=== PATIENT | male | born 1965 | race Two or more races ===

== ENCOUNTER 2019-05-03 08:50 | Day surgery (SDC) | payer OTHER | END 2019-05-03 15:30 | disposition home or self-care (01) | LOC: JASU-SURG 08:50 ==

== ENCOUNTER 2021-07-06 05:02 | Day surgery (SDC) | payer OTHER ==
[2021-07-04 14:53] VITALS: BMI 24.4
[2021-07-06] MEDS ORDERED: MIDAZOLAM HCL 2 MG/2 ML SINGLE DOSE VIAL ONE ×2 (12:21→12:38)
[2021-07-06] MEDS ORDERED: PROPOFOL 20 ML ONE (12:35)
[2021-07-06] MEDS ORDERED: ceFAZolin 2 GRAM PREMIX BAG IVPB ONE (12:37)
[2021-07-06] MEDS ORDERED: ONDANSETRON 4 MG/2 ML VIAL IVPUSH PRN (14:03)
[2021-07-06] MEDS ORDERED: oxyCODONE HCL 5 MG TABLET PO PRN (14:03)
[2021-07-06] MEDS ORDERED: LACTATED RINGERS SOLUTION 1,000 ML IV SCH (14:15)
[2021-07-06] MEDS ORDERED: oxyCODONE HCL 5 MG TABLET ONE (15:26)
[2021-07-06 16:19] VITALS: BP 133/80; PULSE 75; TEMP 98
== END 2021-07-06 16:22 | disposition home or self-care (01) ==
LOC: JASU-SURG 05:02
PROVIDERS: ATTEND Urology
PROC: 0T5B8ZZ Destruction of Bladder, Via Natural or Artificial Opening Endoscopic (ICD-10-PCS; principal; 2021-07-06 11:00)
DX: N40.1 Benign prostatic hyperplasia with lower urinary tract symptoms (principal); R31.29 Other microscopic hematuria; R35.0 Frequency of micturition; R39.15 Urgency of urination; R39.11 Hesitancy of micturition
CPT/HCPCS: 87086; 88305-TC; 94760

== ENCOUNTER 2023-04-03 20:03 | Emergency (ER) | payer OTHER ==
[2023-04-03 20:11] VITALS: BMI 28.7
[2023-04-03] MEDS ORDERED: HALOPERIDOL LACTATE 5 MG/ML IM ONE ×2 (21:24→21:28)
[2023-04-03 22:04] LABS: BASO % 0.7 % (0-2.0); EOS % 1.2 % (0-4.5); HEMATOCRIT 36.3 % (35.4-49); HEMOGLOBIN 12.1 GM/dL (11.7-16.9); LYMPH % 33.1 % (8-40); MCH 26.8 pg (25.7-33.7); MCHC 33.4 g/dl (32.0-35.9); MEAN CELL VOLUME 80.3 fl (80-96); MEAN PLT VOLUME 8.7 fl (7.5-11.1); MONO % 11.1 % (3.8-10.2); NEUT % 53.9 % (42.8-82.8); PLATELET COUNT 190 10^3/uL (134-434); RBC 4.52 M/mm3 (4.00-5.60); RDW 18.3 % (11.9-15.9); WHITE BLOOD COUNT 7.6 K/mm3 (4.0-10.0)
[2023-04-03 22:24] LABS: ALBUMIN 2.9 g/dl (3.4-5.0); BLOOD UREA NITROGEN 20.5 mg/dL (7-18); CALCIUM 8.4 mg/dL (8.5-10.1)
[2023-04-03 22:27] LABS: CREATININE 0.6 mg/dL (0.55-1.3)
[2023-04-03 22:29] LABS: BILIRUBIN,TOTAL 0.2 mg/dL (0.2-1); TOT PROT 6.5 g/dl (6.4-8.2)
[2023-04-04 08:24] VITALS: BP 127/76; PULSE 76; RESP 18; TEMP 97.6
== END 2023-04-04 14:23 ==
LOC: JER 20:03
PROC: 3E023GC Introduction of Other Therapeutic Substance into Muscle, Percutaneous Approach (ICD-10-PCS; principal; 2023-04-03)
DX: R45.89 Other symptoms and signs involving emotional state (principal)
CPT/HCPCS: 36415; 80053; 85025; 93005; 93010; 99284-25

== ENCOUNTER 2023-09-04 22:00 | Inpatient (IN) | payer OTHER ==
[2023-09-05] MEDS ORDERED: MELATONIN 5 MG TABLETS PO ONE (00:22)
[2023-09-05] MEDS ORDERED: MELATONIN 5 MG TABLETS ONE (00:50)
[2023-09-05 01:05] LABS: BASO % 0.9 % (0-2.0); EOS % 1.4 % (0-4.5); HEMATOCRIT 40.3 % (35.4-49); HEMOGLOBIN 13.1 GM/dL (11.7-16.9); LYMPH % 36.1 % (8-40); MCHC 32.4 g/dl (32.0-35.9); MEAN CELL VOLUME 86.4 fl (80-96); MEAN PLT VOLUME 8.9 fl (7.5-11.1); MONO % 9.2 % (3.8-10.2); NEUT % 52.4 % (42.8-82.8); PLATELET COUNT 180 10^3/uL (134-434); RBC 4.66 M/mm3 (4.00-5.60); RDW 16.6 % (11.9-15.9); WHITE BLOOD COUNT 7.3 K/mm3 (4.0-10.0)
[2023-09-05 01:27] LABS: POTASSIUM 4.6 mmol/L (3.5-5.1)
[2023-09-05 01:29] LABS: CALCIUM 8.2 mg/dL (8.5-10.1)
[2023-09-05 01:30] LABS: BLOOD UREA NITROGEN 22.6 mg/dL (7-18)
[2023-09-05 01:33] LABS: CREATININE 0.6 mg/dL (0.55-1.3)
[2023-09-05 01:34] LABS: BILIRUBIN,TOTAL 0.3 mg/dL (0.2-1); TOT PROT 6.4 g/dl (6.4-8.2)
[2023-09-05] MEDS: TAMSULOSIN HCL 0.4 MG CAP PO SCH (08:35)
[2023-09-05] MEDS: FLUoxetine HCL 20 MG CAPSULE PO SCH (10:04)
[2023-09-05] MEDS: DIVALPROEX NA *ER* EXTEND REL 500 MG TABLET.SA (FP) PO SCH (10:04)
[2023-09-05] MEDS: MUPIROCIN 2% TOPICAL OINTMENT 22 GM TUBE TP SCH ×2 (12:23→23:12)
[2023-09-05 13:06] LABS: COCAINE, UR NEGATIVE (NEGATIVE); METHADONE, UR NEGATIVE (NEGATIVE)
[2023-09-05 13:07] LABS: OPIATES, URI NEGATIVE (NEGATIVE); PHENCYCLIDINE,URINE NEGATIVE (NEGATIVE); URINE AMPHETAMINES NEGATIVE (NEGATIVE); URINE BARBITURATES NEGATIVE (NEGATIVE); URINE BENZODIAZEPINES NEGATIVE (NEGATIVE)
[2023-09-05 13:29] LABS: BASO % 0.5 % (0-2.0); EOS % 1.3 % (0-4.5); HEMATOCRIT 41.4 % (35.4-49); HEMOGLOBIN 13.5 GM/dL (11.7-16.9); LYMPH % 27.6 % (8-40); MCHC 32.5 g/dl (32.0-35.9); MEAN CELL VOLUME 86.1 fl (80-96); MONO % 8.4 % (3.8-10.2); NEUT % 62.2 % (42.8-82.8); PLATELET COUNT 193 10^3/uL (134-434); RBC 4.81 M/mm3 (4.00-5.60); RDW 16.8 % (11.9-15.9); WHITE BLOOD COUNT 6.5 K/mm3 (4.0-10.0)
[2023-09-05 13:53] LABS: CALCIUM 8.4 mg/dL (8.5-10.1)
[2023-09-05 13:54] LABS: ALBUMIN 3.2 g/dl (3.4-5.0); BLOOD UREA NITROGEN 19.1 mg/dL (7-18)
[2023-09-05 13:56] LABS: CREATININE 0.5 mg/dL (0.55-1.3)
[2023-09-05 13:57] LABS: PHOSPHOROUS 2.7 mg/dL (2.5-4.9)
[2023-09-05 13:58] LABS: BILIRUBIN,TOTAL 0.4 mg/dL (0.2-1); TOT PROT 6.5 g/dl (6.4-8.2)
[2023-09-05] MEDS: RIVAROXABAN 20 MG TABLET PO SCH (17:37)
[2023-09-05 20:00] VITALS: BMI 29.4
[2023-09-05] MEDS: PRAMIPEXOLE DIHYDROCHLORIDE 0.25 MG TABLET PO SCH (23:05)
[2023-09-05] MEDS: MELATONIN 5 MG TABLETS PO SCH (23:06)
[2023-09-05] MEDS: MIRTAZAPINE 15 MG TABLET (FP) PO SCH (23:07)
[2023-09-05] MEDS: ATORVASTATIN CA 80 MG TABLET (FP) PO SCH (23:07)
[2023-09-06] MEDS: AMITRIPTYLINE HCL 25 MG TABLET PO SCH ×2 (00:49→22:25)
[2023-09-06 09:16] LABS: BASO % 0.4 % (0-2.0); EOS % 1.3 % (0-4.5); HEMATOCRIT 42.6 % (35.4-49); LYMPH % 23.1 % (8-40); MCH 28.4 pg (25.7-33.7); MCHC 32.9 g/dl (32.0-35.9); MEAN CELL VOLUME 86.3 fl (80-96); MEAN PLT VOLUME 8.9 fl (7.5-11.1); MONO % 6.1 % (3.8-10.2); NEUT % 69.1 % (42.8-82.8); PLATELET COUNT 191 10^3/uL (134-434); RBC 4.93 M/mm3 (4.00-5.60); RDW 16.4 % (11.9-15.9); WHITE BLOOD COUNT 9.6 K/mm3 (4.0-10.0)
[2023-09-06 09:31] LABS: CALCIUM 8.2 mg/dL (8.5-10.1)
[2023-09-06 09:34] LABS: ALBUMIN 3.1 g/dl (3.4-5.0); BLOOD UREA NITROGEN 19.4 mg/dL (7-18)
[2023-09-06 09:35] LABS: CREATININE 0.6 mg/dL (0.55-1.3)
[2023-09-06 09:37] LABS: BILIRUBIN,TOTAL 0.6 mg/dL (0.2-1)
[2023-09-06 09:40] LABS: TOT PROT 6.7 g/dl (6.4-8.2)
[2023-09-06] MEDS: TAMSULOSIN HCL 0.4 MG CAP PO SCH (10:01)
[2023-09-06] MEDS: DIVALPROEX NA *ER* EXTEND REL 500 MG TABLET.SA (FP) PO SCH (10:01)
[2023-09-06] MEDS: FLUoxetine HCL 20 MG CAPSULE PO SCH (10:02)
[2023-09-06] MEDS: SODIUM CHLORIDE 1,000 ML IV SCH (13:39)
[2023-09-06] MEDS: MUPIROCIN 2% TOPICAL OINTMENT 22 GM TUBE TP SCH ×2 (14:38→22:25)
[2023-09-06] MEDS: ACETAMINOPHEN 325 MG TABLET (FP) PO PRN (15:27)
[2023-09-06] MEDS: RIVAROXABAN 20 MG TABLET PO SCH (17:57)
[2023-09-06] MEDS: MIRTAZAPINE 15 MG TABLET (FP) PO SCH (22:24)
[2023-09-06] MEDS: ATORVASTATIN CA 80 MG TABLET (FP) PO SCH (22:24)
[2023-09-06] MEDS: PRAMIPEXOLE DIHYDROCHLORIDE 0.25 MG TABLET PO SCH (22:24)
[2023-09-06] MEDS: MELATONIN 5 MG TABLETS PO SCH (22:25)
[2023-09-07] MEDS: SODIUM CHLORIDE 1,000 ML IV SCH (03:07)
[2023-09-07] MEDS: TAMSULOSIN HCL 0.4 MG CAP PO SCH (09:45)
[2023-09-07] MEDS: FLUoxetine HCL 20 MG CAPSULE PO SCH (09:45)
[2023-09-07] MEDS: DIVALPROEX NA *ER* EXTEND REL 500 MG TABLET.SA (FP) PO SCH (09:45)
[2023-09-07] MEDS: MUPIROCIN 2% TOPICAL OINTMENT 22 GM TUBE TP SCH ×2 (09:45→22:22)
[2023-09-07] MEDS: ACETAMINOPHEN 325 MG TABLET (FP) PO PRN ×2 (16:55→22:22)
[2023-09-07] MEDS: RIVAROXABAN 20 MG TABLET PO SCH (17:08)
[2023-09-07] MEDS: FLUTICASONE PROP 0.05% 16 GM NASAL SPRAY NS SCH (19:03)
[2023-09-07] MEDS: MELATONIN 5 MG TABLETS PO SCH (22:22)
[2023-09-07] MEDS: MIRTAZAPINE 15 MG TABLET (FP) PO SCH (22:22)
[2023-09-07] MEDS: AMITRIPTYLINE HCL 25 MG TABLET PO SCH (22:22)
[2023-09-07] MEDS: PRAMIPEXOLE DIHYDROCHLORIDE 0.25 MG TABLET PO SCH (22:22)
[2023-09-07] MEDS: ATORVASTATIN CA 80 MG TABLET (FP) PO SCH (22:22)
[2023-09-08] MEDS: TAMSULOSIN HCL 0.4 MG CAP PO SCH (09:07)
[2023-09-08] MEDS: FLUoxetine HCL 20 MG CAPSULE PO SCH (11:32)
[2023-09-08] MEDS: DIVALPROEX NA *ER* EXTEND REL 500 MG TABLET.SA (FP) PO SCH (11:33)
[2023-09-08] MEDS: FLUTICASONE PROP 0.05% 16 GM NASAL SPRAY NS SCH (11:34)
[2023-09-08] MEDS: MUPIROCIN 2% TOPICAL OINTMENT 22 GM TUBE TP SCH ×2 (11:35→22:44)
[2023-09-08] MEDS: ACETAMINOPHEN 325 MG TABLET (FP) PO PRN (11:38)
[2023-09-08] MEDS: RIVAROXABAN 20 MG TABLET PO SCH (17:01)
[2023-09-08] MEDS: AMITRIPTYLINE HCL 25 MG TABLET PO SCH (22:40)
[2023-09-08] MEDS: MIRTAZAPINE 15 MG TABLET (FP) PO SCH (22:40)
[2023-09-08] MEDS: ATORVASTATIN CA 80 MG TABLET (FP) PO SCH (22:40)
[2023-09-08] MEDS: MELATONIN 5 MG TABLETS PO SCH (22:40)
[2023-09-08] MEDS: PRAMIPEXOLE DIHYDROCHLORIDE 0.25 MG TABLET PO SCH (22:40)
[2023-09-09] MEDS: ACETAMINOPHEN 325 MG TABLET (FP) PO PRN (08:59)
[2023-09-09] MEDS: TAMSULOSIN HCL 0.4 MG CAP PO SCH (09:01)
[2023-09-09] MEDS: DIVALPROEX NA *ER* EXTEND REL 500 MG TABLET.SA (FP) PO SCH (09:57)
[2023-09-09] MEDS: FLUoxetine HCL 20 MG CAPSULE PO SCH (09:58)
[2023-09-09] MEDS: FLUTICASONE PROP 0.05% 16 GM NASAL SPRAY NS SCH (12:43)
[2023-09-09] MEDS: MUPIROCIN 2% TOPICAL OINTMENT 22 GM TUBE TP SCH ×2 (12:44→22:18)
[2023-09-09] MEDS: RIVAROXABAN 20 MG TABLET PO SCH (17:23)
[2023-09-09] MEDS: MELATONIN 5 MG TABLETS PO SCH (22:17)
[2023-09-09] MEDS: PRAMIPEXOLE DIHYDROCHLORIDE 0.25 MG TABLET PO SCH (22:17)
[2023-09-09] MEDS: ATORVASTATIN CA 80 MG TABLET (FP) PO SCH (22:17)
[2023-09-09] MEDS: AMITRIPTYLINE HCL 25 MG TABLET PO SCH (22:17)
[2023-09-09] MEDS: MIRTAZAPINE 15 MG TABLET (FP) PO SCH (22:17)
[2023-09-10] MEDS: ACETAMINOPHEN 325 MG TABLET (FP) PO PRN ×2 (09:42→20:58)
[2023-09-10] MEDS: TAMSULOSIN HCL 0.4 MG CAP PO SCH (09:42)
[2023-09-10] MEDS: MUPIROCIN 2% TOPICAL OINTMENT 22 GM TUBE TP SCH ×2 (09:43→20:59)
[2023-09-10] MEDS: DIVALPROEX NA *ER* EXTEND REL 500 MG TABLET.SA (FP) PO SCH (09:43)
[2023-09-10] MEDS: FLUoxetine HCL 20 MG CAPSULE PO SCH (09:44)
[2023-09-10] MEDS: FLUTICASONE PROP 0.05% 16 GM NASAL SPRAY NS SCH (13:26)
[2023-09-10] MEDS: RIVAROXABAN 20 MG TABLET PO SCH (17:19)
[2023-09-10] MEDS: PRAMIPEXOLE DIHYDROCHLORIDE 0.25 MG TABLET PO SCH (20:59)
[2023-09-10] MEDS: MELATONIN 5 MG TABLETS PO SCH (20:59)
[2023-09-10] MEDS: ATORVASTATIN CA 80 MG TABLET (FP) PO SCH (20:59)
[2023-09-10] MEDS: MIRTAZAPINE 15 MG TABLET (FP) PO SCH (20:59)
[2023-09-10] MEDS: AMITRIPTYLINE HCL 25 MG TABLET PO SCH (21:04)
[2023-09-11 08:35] LABS: HEMATOCRIT 43.3 % (35.4-49); HEMOGLOBIN 14.3 GM/dL (11.7-16.9); MCH 28.3 pg (25.7-33.7); MCHC 33.1 g/dl (32.0-35.9); MEAN CELL VOLUME 85.3 fl (80-96); PLATELET COUNT 184 10^3/uL (134-434); RBC 5.08 M/mm3 (4.00-5.60); RDW 16.7 % (11.9-15.9); WHITE BLOOD COUNT 7.4 K/mm3 (4.0-10.0)
[2023-09-11] MEDS: FLUoxetine HCL 20 MG CAPSULE PO SCH ×3 (08:41→09:42)
[2023-09-11] MEDS: TAMSULOSIN HCL 0.4 MG CAP PO SCH (08:41)
[2023-09-11] MEDS: DIVALPROEX NA *ER* EXTEND REL 500 MG TABLET.SA (FP) PO SCH ×2 (08:44→09:42)
[2023-09-11] MEDS: FLUTICASONE PROP 0.05% 16 GM NASAL SPRAY NS SCH ×2 (08:44→09:42)
[2023-09-11] MEDS: MUPIROCIN 2% TOPICAL OINTMENT 22 GM TUBE TP SCH ×3 (08:45→23:05)
[2023-09-11 09:08] LABS: POTASSIUM 3.8 mmol/L (3.5-5.1)
[2023-09-11 09:12] LABS: CALCIUM 8.5 mg/dL (8.5-10.1)
[2023-09-11 09:15] LABS: CREATININE 0.6 mg/dL (0.55-1.3)
[2023-09-11] MEDS: RIVAROXABAN 20 MG TABLET PO SCH (17:10)
[2023-09-11] MEDS: MELATONIN 5 MG TABLETS PO SCH (21:39)
[2023-09-11] MEDS: ATORVASTATIN CA 80 MG TABLET (FP) PO SCH (21:40)
[2023-09-11] MEDS: MIRTAZAPINE 15 MG TABLET (FP) PO SCH (21:40)
[2023-09-11] MEDS: PRAMIPEXOLE DIHYDROCHLORIDE 0.25 MG TABLET PO SCH (21:45)
[2023-09-11] MEDS: AMITRIPTYLINE HCL 25 MG TABLET PO SCH ×2 (21:45→23:06)
[2023-09-12] MEDS: TAMSULOSIN HCL 0.4 MG CAP PO SCH (09:21)
[2023-09-12] MEDS: FLUoxetine HCL 20 MG CAPSULE PO SCH (11:14)
[2023-09-12] MEDS: MUPIROCIN 2% TOPICAL OINTMENT 22 GM TUBE TP SCH (11:15)
[2023-09-12] MEDS: DIVALPROEX NA *ER* EXTEND REL 500 MG TABLET.SA (FP) PO SCH (11:15)
[2023-09-12] MEDS: FLUTICASONE PROP 0.05% 16 GM NASAL SPRAY NS SCH (11:16)
[2023-09-12 16:44] VITALS: RESP 18
[2023-09-12] MEDS: RIVAROXABAN 20 MG TABLET PO SCH (17:10)
[2023-09-12 18:04] VITALS: BP 132/96; PULSE 76; TEMP 98
== END 2023-09-12 18:41 | DRG 103 ==
LOC: JER 22:00 → JERBED 09-05 03:35 → J5S 09-05 17:07 → OBSVTOIN 09-08 09:41
PROVIDERS: ADMIT Internal Medicine
DX: R51.9 Headache, unspecified (principal); I69.354 Hemiplegia and hemiparesis following cerebral infarction affecting left non-dominant side; I10 Essential (primary) hypertension; E78.5 Hyperlipidemia, unspecified; I48.91 Unspecified atrial fibrillation; F32.9 Major depressive disorder, single episode, unspecified; F39 Unspecified mood [affective] disorder; M54.9 Dorsalgia, unspecified; R29.810 Facial weakness; N40.0 Benign prostatic hyperplasia without lower urinary tract symptoms; G47.00 Insomnia, unspecified; G25.81 Restless legs syndrome; Z99.3 Dependence on wheelchair
CPT/HCPCS: 36415; 80048; 80053; 80307; 83036; 83735; 84100; 84439; 84443; 84484; 85025; 85027; 86780; 87635; 93005; 93010; 97116-GP; 97162-GP; 99285-25; G0378

== ENCOUNTER 2024-07-24 17:46 | Inpatient (IN) | payer OTHER ==
[2024-07-24 18:01] VITALS: BMI 30.9
[2024-07-24 20:02] LABS: BASO % 0.4 % (0-2.0); EOS % 1.3 % (0-4.5); HEMATOCRIT 46.9 % (35.4-49); HEMOGLOBIN 15.4 GM/dL (11.7-16.9); MCH 28.9 pg (25.7-33.7); MCHC 32.9 g/dl (32.0-35.9); MEAN CELL VOLUME 88.1 fl (80-96); MEAN PLT VOLUME 8.8 fl (7.5-11.1); MONO % 11.3 % (3.8-10.2); PLATELET COUNT 168 10^3/uL (134-434); RBC 5.32 M/mm3 (4.00-5.60); RDW 15.4 % (11.9-15.9); WHITE BLOOD COUNT 9.4 K/mm3 (4.0-10.0)
[2024-07-24 20:22] LABS: POTASSIUM 4.2 mmol/L (3.5-5.1)
[2024-07-24 20:24] LABS: CALCIUM 8.7 mg/dL (8.5-10.1)
[2024-07-24 20:25] LABS: ALBUMIN 2.9 g/dl (3.4-5.0); BLOOD UREA NITROGEN 26.8 mg/dL (7-18)
[2024-07-24 20:28] LABS: CREATININE 0.7 mg/dL (0.55-1.3)
[2024-07-24 20:29] LABS: BILIRUBIN,TOTAL 0.3 mg/dL (0.2-1)
[2024-07-24 20:30] LABS: TOT PROT 6.8 g/dl (6.4-8.2)
[2024-07-24] MEDS ORDERED: DIVALPROEX SODIUM 250 MG TABLET E.C. ONE (22:53)
[2024-07-24] MEDS ORDERED: traZODone HCL 50 MG TABLET (FP) ONE (22:54)
[2024-07-24] MEDS: DIVALPROEX SODIUM 500 MG TABLET E.C. PO SCH (22:55)
[2024-07-24] MEDS: traZODone HCL 50 MG TABLET (FP) PO SCH (22:56)
[2024-07-24 22:58] LABS: EPI CELLS 8 /uL (0-25.1); HYALINE CASTS 2 /uL (0-3.1); URINE APPEARANCE CLEAR; URINE BACTERIA 9 /uL (0-1359); URINE BILIRUBIN NEGATIVE (NEGATIVE); URINE COLOR YELLOW; URINE GLUCOSE (UA) NEGATIVE (NEGATIVE); URINE KETONE TRACE (NEGATIVE); URINE LEUK ESTERASE NEGATIVE (NEGATIVE); URINE NITRITE NEGATIVE (NEGATIVE); URINE PROTEIN 3+ (NEGATIVE); URINE RBC 323 /uL (0-23.9); URINE WBC 11 /uL (0-25.8)
[2024-07-24] MEDS ORDERED: DIVALPROEX NA *ER* EXTEND REL 500 MG TABLET.SA (FP) PO SCH (23:00)
[2024-07-25] MEDS: BACLOFEN 10 MG TABLET (FP) PO SCH (05:32)
[2024-07-25 05:55] VITALS: RESP 18
[2024-07-25 08:45] LABS: BASO % 0.4 % (0-2.0); EOS % 0.9 % (0-4.5); HEMATOCRIT 45.6 % (35.4-49); HEMOGLOBIN 15.3 GM/dL (11.7-16.9); LYMPH % 32.2 % (8-40); MCH 29.6 pg (25.7-33.7); MCHC 33.7 g/dl (32.0-35.9); MEAN CELL VOLUME 87.8 fl (80-96); MEAN PLT VOLUME 8.7 fl (7.5-11.1); MONO % 9.7 % (3.8-10.2); NEUT % 56.8 % (42.8-82.8); PLATELET COUNT 154 10^3/uL (134-434); RBC 5.19 M/mm3 (4.00-5.60); RDW 15.4 % (11.9-15.9); WHITE BLOOD COUNT 8.1 K/mm3 (4.0-10.0)
[2024-07-25 09:13] LABS: ALBUMIN 2.8 g/dl (3.4-5.0); BLOOD UREA NITROGEN 24.9 mg/dL (7-18); CALCIUM 8.4 mg/dL (8.5-10.1); MAGNESIUM 1.9 mg/dL (1.8-2.4)
[2024-07-25 09:16] LABS: CREATININE 0.7 mg/dL (0.55-1.3); PHOSPHOROUS 3.7 mg/dL (2.5-4.9)
[2024-07-25 09:17] LABS: BILIRUBIN,TOTAL 0.4 mg/dL (0.2-1); TOT PROT 6.6 g/dl (6.4-8.2)
[2024-07-25] MEDS: PRAMIPEXOLE DIHYDROCHLORIDE 0.25 MG TABLET PO SCH (09:45)
[2024-07-25] MEDS: TAMSULOSIN HCL 0.4 MG CAP PO SCH (09:45)
[2024-07-25] MEDS ORDERED: PATIENT'S OWN MEDICATION (NON-FORMULARY) (Fluoxetine Hcl [Prozac] 40 MG Capsule) PO SCH (10:00)
[2024-07-25] MEDS ORDERED: ENOXAPARIN NA (PORCINE) 40 MG/0.4 ML DISP.SYRIN SQ SCH ×2 (10:00)
[2024-07-25] MEDS: FLUoxetine HCL 20 MG CAPSULE PO SCH (10:49)
[2024-07-25] MEDS: MIRTAZAPINE 15 MG TABLET (FP) PO SCH (21:51)
[2024-07-25] MEDS: ATORVASTATIN CA 80 MG TABLET (FP) PO SCH (21:51)
[2024-07-25] MEDS: MELATONIN 5 MG TABLETS PO SCH (21:51)
[2024-07-26] MEDS ORDERED: PATIENT'S OWN MEDICATION (NON-FORMULARY) (Clobetasol Propionate/Emoll [Clobetasol Emollien TP PRN (13:58)
[2024-07-26] MEDS: ACETAMINOPHEN 325 MG TABLET (FP) PO PRN (17:29)
[2024-07-27] MEDS: METHYL SALICYLATE/MENTHOL 30 GM TUBE TP PRN (09:25)
[2024-07-27 13:20] VITALS: TEMP 98.6
[2024-07-27 16:03] VITALS: BP 141/82; PULSE 66
== END 2024-07-27 17:06 | DRG 57 ==
LOC: JER 17:46 → JERBED 20:42 → J5S 07-25 01:37
PROVIDERS: ADMIT Internal Medicine
DX: I69.354 Hemiplegia and hemiparesis following cerebral infarction affecting left non-dominant side (principal); Z01.89 Encounter for other specified special examinations; M25.511 Pain in right shoulder; I10 Essential (primary) hypertension; E78.5 Hyperlipidemia, unspecified; G43.909 Migraine, unspecified, not intractable, without status migrainosus; F17.210 Nicotine dependence, cigarettes, uncomplicated; K21.9 Gastro-esophageal reflux disease without esophagitis; G47.00 Insomnia, unspecified; N40.0 Benign prostatic hyperplasia without lower urinary tract symptoms; F32.A Depression, unspecified; Z99.3 Dependence on wheelchair
CPT/HCPCS: 0241U-QW; 36415; 80053; 81003; 83735; 84100; 85025; 93005; 93010; 99285-25; J0475